=== PATIENT | male | born 1980 | race Caucasian/White ===

== ENCOUNTER 2024-07-28 14:43 | Inpatient (IN) | payer OTHER, SELFPAY ==
[2024-07-28] VITALS (10 sets, daily range): BP systolic 100–151; BP diastolic 44–84; BMI 30.4
--- NOTE | 2024-07-28 10:48 | ED.GENMED ---
History of Present Illness
<Carola Mittal PA-C - Last Filed: 07/28/24 18:59>
General
Chief Complaint: Musculo-Skeletal Complaint
Source: patient
Exam Limitations: none
Time Seen by Provider: 07/28/24 10:27
Nursing documentation reviewed up to this point in time: agreed with
History of Present Illness
History of Present Illness:
44 y/o M with no sig pmh
was at work and a granite countertop fell on top of him, mostly hitting his R lower leg and fell backwards, hit his head
he has pain/swelling/deformity of R lower leg tib fib region
no LOC
no headache, cp, sob
EMS noticed he was vitor in 40s, ran ekg and showed sinus rhythm with J point elevation
pt had no cp, sob
abrasion righ tthigh and bruise to L foot
denies headache/nekc pain
Past History
<Carola Mittal PA-C - Last Filed: 07/28/24 18:59>
Past History
ED Past Medical History: None
ED Past Surgical History: None
Social History
Tobacco: Non-smoker
Alcohol: None
Drug: None
Personal: Single
Living: with family
Employment: Employed
Review of Systems
<TAMMIE Vivas Last Filed: 07/28/24 18:59>
Review of Systems
Allergies reviewed?: Yes
All Other Systems: Not applicable
Phy Exam
<TAMMIE Vivas Last Filed: 07/28/24 18:59>
Physical Exam
Physical Exam:
GENERAL: Alert , in no apparent distress
HEAD: NCAT
NECK: no midline tenderness, active ROM intact, no paraspinal muscle tenderness;
EYE: pupils equal and reactive, EOMs intact.
ENT: o/p clr, mmm. no hemotympanum
CARDIAC: Regular rate and rhythm, no edema
LUNGS: Clear breath sounds bilaterally, no acute respiratory distress, no wheezes/rales/rhonchi
ABDOMEN: Soft, without focal tenderness, no r/g, no cvat no bruising
NEUROLOGICAL: Alert and oriented, no focal neuro deficits, CN intact, 5/5 strength, sensation intact
SKIN: Warm and dry, abrasion R anterior knee
bruising to L dorsal foot
MUSCULOSKELETAL: obvious deformity closed fx of the midshaft tibial region RLE
no bony ankle tenderness
right foot slightly swollen R lateral foot
normal calf, compartment soft
normal sensation distally
can wiggle toes
PSYCH: Normal and appropriate interaction.
Course
<Carola Mittal PA-C - Last Filed: 07/28/24 18:59>
Orders/Labs/Results
Orders:
Orders
07/28/24 Lunch
Regular
At Your Request: Limited, Garbage Collector Supervisor Required
07/28/24 10:44
Electrocardiogram (*1) Urgent
Reason for Study: Other
Other Reason for Exam: bradycardia
EKG- Treatment ONCE
CR Foot - Left Min 3 Views Urgent
Comment:
Reason For Exam: left foot bruising, granite fell
CR Foot - Right Min 3 Views Urgent
Comment:
Reason For Exam: right foot injury
Femur, Right 2 View [CR Femur - Right Min 2 Vw] Urgent
Comment:
Reason For Exam: right leg
07/28/24 10:46
CT Cervical Spine W/o Iv Contr Urgent
Comment:
Reason For Exam: trauma
CT Head W/o Iv Contrast Urgent
Comment:
Reason For Exam: trauma
HYDROmorphone [Dilaudid] 1 mg IV NOW STA
Tib/Fib, Right 2 View [CR Leg Tibia/fibula Right 2 Vw] Urgent
Comment:
Reason For Exam: right leg injury
07/28/24 10:59
Complete Blood Count/With Diff Urgent
Comprehensive Metabolic Panel Urgent
PTT Urgent
Prothrombin Time Urgent
07/28/24 13:47
Admit/Transfer Patient As Directed
Co-Sign Provider:
Level of Care: Inpatient admission
Assign to:: Medical/Surgical
Physician / Group: Gloria
Diagnosis: RLE fracture
Reason for Hospitalization: Above
Expected length of stay greater than two midnights?: Yes
ELOS- Estimated Length of Stay in days: 2
I certify the patient meets the requirements for IP care: Yes
PRN Pain Medication Management As Directed
May give lesser potent ordered pain med per pt: Yes
preference::
Protocol:: Medication orders for pain may be administered in a
manner that supports deferring to patient preference
when the pt is:
- Requesting an ordered lesser potent pain medication.
Least to most potent pain medications are defined
as: acetaminophen < NSAID < tramadol < opioids
(morphine, oxycodone, hydromorphone).
- Requesting a lesser dose of the same medication IF
ORDERED.
- Requesting a less intrusive route of administration
if both routes are prescribed by the provider (PO <
IV).
07/28/24 13:48
Code Status As Directed
Resuscitation Status: Full Code
07/28/24 16:07
Acetaminophen [Tylenol] 1,000 mg PO Q6HPRN PRN
Ketorolac [Toradol] 30 mg IV Q6HPRN PRN
Morphine Sulfate 4 mg IV Q4HPRN PRN
07/28/24 16:07
ECG [Electrocardiogram (*1)] Routine
Reason for Study: PreOp
ORTHOPEDIC CONSULT Routine
Consulting Provider: Jonathan Hennessy
Was physician already notified: Yes
VTE Contraindication Routine
VTE Mechanical Device Contraindication: Lower Limb Injury
Pharmocologic Contraindication: Low Risk- LOS < 2 days
Risk assessment completed and pt is low risk: Yes
Neurological Checks As Directed
Frequency: q2h
Additional Instructions:: RLE extremity monitoring for compartment syndrome
07/29/24 Breakfast
NPO
Allow oral meds: Yes
Allow clear liquids: No
Abnormal Lab Results
07/28/24
10:59
WBC 11.5 H 10^3/uL
(4.8-10.8)
MCH 31.2 H pg
(27.0-31.0)
Absolute Neuts (auto) 8.6 H 10^3/uL
(1.4-6.5)
Absolute Monos (auto) 0.8 H 10^3/uL
(0.1-0.6)
Lymphocytes % 17.3 L %
(20.5-51.1)
Glucose 122 H mg/dl
(70-99)
07/28/24 10:59
07/28/24 10:59
Vital Signs
Initial and Last Documented VS:
Initial Vital Signs
Pulse Resp BP Pulse Ox
49 16 100/44 97
07/28/24 10:27 07/28/24 10:27 07/28/24 10:27 07/28/24 10:27
Last Documented Vital Signs
Temp Pulse Resp BP Pulse Ox
98.9 F 68 18 125/65 100
07/28/24 16:33 07/28/24 16:33 07/28/24 16:33 07/28/24 16:33 07/28/24 16:33
<Blake Reyes MD - Last Filed: 07/28/24 14:04>
Orders/Labs/Results
Orders:
Orders
07/28/24 Lunch
Regular
At Your Request: Limited, Garbage Collector Supervisor Required
07/28/24 10:44
Electrocardiogram (*1) Urgent
Reason for Study: Other
Other Reason for Exam: bradycardia
EKG- Treatment ONCE
CR Foot - Left Min 3 Views Urgent
Comment:
Reason For Exam: left foot bruising, granite fell
CR Foot - Right Min 3 Views Urgent
Comment:
Reason For Exam: right foot injury
Femur, Right 2 View [CR Femur - Right Min 2 Vw] Urgent
Comment:
Reason For Exam: right leg
07/28/24 10:46
CT Cervical Spine W/o Iv Contr Urgent
Comment:
Reason For Exam: trauma
CT Head W/o Iv Contrast Urgent
Comment:
Reason For Exam: trauma
HYDROmorphone [Dilaudid] 1 mg IV NOW STA
Tib/Fib, Right 2 View [CR Leg Tibia/fibula Right 2 Vw] Urgent
Comment:
Reason For Exam: right leg injury
07/28/24 10:59
Complete Blood Count/With Diff Urgent
Comprehensive Metabolic Panel Urgent
PTT Urgent
Prothrombin Time Urgent
07/28/24 13:47
Admit/Transfer Patient As Directed
Co-Sign Provider:
Level of Care: Inpatient admission
Assign to:: Medical/Surgical
Physician / Group: Gloria
Diagnosis: RLE fracture
Reason for Hospitalization: Above
Expected length of stay greater than two midnights?: Yes
ELOS- Estimated Length of Stay in days: 2
I certify the patient meets the requirements for IP care: Yes
PRN Pain Medication Management As Directed
May give lesser potent ordered pain med per pt: Yes
preference::
Protocol:: Medication orders for pain may be administered in a
manner that supports deferring to patient preference
when the pt is:
- Requesting an ordered lesser potent pain medication.
Least to most potent pain medications are defined
as: acetaminophen < NSAID < tramadol < opioids
(morphine, oxycodone, hydromorphone).
- Requesting a lesser dose of the same medication IF
ORDERED.
- Requesting a less intrusive route of administration
if both routes are prescribed by the provider (PO <
IV).
07/28/24 13:48
Code Status As Directed
Resuscitation Status: Full Code
07/28/24 16:07
Acetaminophen [Tylenol] 1,000 mg PO Q6HPRN PRN
Ketorolac [Toradol] 30 mg IV Q6HPRN PRN
Morphine Sulfate 4 mg IV Q4HPRN PRN
07/28/24 16:07
ECG [Electrocardiogram (*1)] Routine
Reason for Study: PreOp
ORTHOPEDIC CONSULT Routine
Consulting Provider: Jonathan Hennessy
Was physician already notified: Yes
VTE Contraindication Routine
VTE Mechanical Device Contraindication: Lower Limb Injury
Pharmocologic Contraindication: Low Risk- LOS < 2 days
Risk assessment completed and pt is low risk: Yes
Neurological Checks As Directed
Frequency: q2h
Additional Instructions:: RLE extremity monitoring for compartment syndrome
07/29/24 Breakfast
NPO
Allow oral meds: Yes
Allow clear liquids: No
Abnormal Lab Results
07/28/24
10:59
WBC 11.5 H 10^3/uL
(4.8-10.8)
MCH 31.2 H pg
(27.0-31.0)
Absolute Neuts (auto) 8.6 H 10^3/uL
(1.4-6.5)
Absolute Monos (auto) 0.8 H 10^3/uL
(0.1-0.6)
Lymphocytes % 17.3 L %
(20.5-51.1)
Glucose 122 H mg/dl
(70-99)
07/28/24 10:59
07/28/24 10:59
Vital Signs
Initial and Last Documented VS:
Initial Vital Signs
Pulse Resp BP Pulse Ox
49 16 100/44 97
07/28/24 10:27 07/28/24 10:27 07/28/24 10:27 07/28/24 10:27
Last Documented Vital Signs
Temp Pulse Resp BP Pulse Ox
98.9 F 68 18 125/65 100
07/28/24 16:33 07/28/24 16:33 07/28/24 16:33 07/28/24 16:33 07/28/24 16:33
<Carola Mittal PA-C - Last Filed: 07/28/24 18:59>
MDM/Problems Addressed
Differential Diagnosis Includes:
fracture deformity, traua crush injury
MDM/Problems Addressed:
Spanish speaking
workman's comp injury, granite slab fell off counter onto RLE
fracture deformity of mid shaft tib/fib right leg;
normal pulse
compartment soft
ortho dr. hennessy was consulted
recommends NPO, admit, compartment checks and will need surgery
no other injuries, head/neck ct neg
femur normal
no abdominal trauma
<Carola Mittal PA-C - Last Filed: 07/28/24 18:59>
*Critical Care Note
Total Time (30-74mins, 75-104mins- exclusive of procedures): Not Applicable
ED Attending Note
<Carola Mittal PA-C - Last Filed: 07/28/24 18:59>
-
Portions of this chart may have been created with voice recognition software.� Occasional wrong word or��sound alike� substitutions may have occurred due to the inherent limitations of voice recognition software.
<Blake Reyes MD - Last Filed: 07/28/24 14:04>
ED Attending Note
Patient seen and examined by attending physician: Yes
ED Attending Note:
I have seen and evaluated the patient with a [id number] encounter. I have spoken to the advance practicer provider and involved in the medical history, the physical exam, medical decision making.
Evaluation and management service: agree unless noted differently below.
Results interpretation: agree unless noted differently below.
Focused HPI: 44-year-old male with no reported chronic medical issues presents for evaluation of a right leg injury. Patient was working with a granite slab fell onto his right leg, knocked patient over. He did hit his head but did not lose
consciousness. Sustained a deformity of the right lower leg. He denies any other injuries�denies headache, neck pain, back pain, chest pain, abdominal pain. Denies any pain to the upper extremities.
Physical exam: Awake alert oriented x 3 with a GCS of 15. Head atraumatic. No tenderness of the cervical spine, no tenderness of the thoracic or lumbar spine. Minor abrasion to the left scapula. Upper extremities atraumatic. Minor abrasion
right lateral thigh. Obvious deformity the right lower leg consistent with hip/fib fracture. No lacerations or wounds on the lower leg. Compartments soft in the right lower leg. Good strong palpable DP and PT pulse right lower extremity.
Medical Decision Makin-year-old male presents with significant right lower leg injury after granite slab fell onto his leg. Vitals and exam as above. Sent for a CT of the head and cervical spine which were negative. X-rays of the lower leg
showed tib/fib fracture. Discussed with orthopedics and will plan to admit for compartment checks and surgical repair.
Discharge Plan
Departure
Patient Disposition: Admit
Date of Disposition: 07/28/24
Time of Disposition: 12:25
Admit to: Med/Surg
Presentation/result/management discussed w/ accepting MD/DO: Hospitalist
Condition: Fair
Covid-19: Not Applicable
Discharge Problem:
Fracture tibia/fibula
Interventions
Interventions:
*Risk Screen - Suicide Last Done: 07/28/24 15:40
*General Assessment Last Done: 07/28/24 10:27
*Neglect/Abuse Screening Last Done: 07/28/24 10:27
ED- Fall Risk Assessment Last Done: 07/28/24 10:27
*ED COVID-19 Vaccine History Last Done: 07/28/24 11:08
*Nursing Disposition Last Done: 07/28/24 15:40
ED-Musculoskeletal Assessment Last Done: 07/28/24 10:27
Discharge Date and Time
Discharge Date/Time: 07/28/24 15:41
[2024-07-28] MEDS: DILAUDID 1 MG IV (10:56)
[2024-07-28 11:10] LABS: % Basophils 0.7 % (0-2); % Eosinophils 0.3 % (0-6); % Immature Granulocytes 0.3 % (0-0.5); % Lymphocytes 17.3 % (20.5-51.1); % Monocytes 7.2 % (1.7-9.3); % Neutrophils 74.2 % (42.2-75.2); Absolute Basophils 0.1 10^3/uL (0-0.2); Absolute Monocytes 0.8 10^3/uL (0.1-0.6); Absolute Neutrophils 8.6 10^3/uL (1.4-6.5); Hematocrit 44.3 % (39.0-52.0); Hemoglobin 15.7 g/dL (13.0-18.0); Mean Corp Hgb Conc. 35.4 g/dL (33.0-37.0); Mean Corpuscular Hgb 31.2 pg (27.0-31.0); Mean Corpuscular Volume 87.9 fL (80.0-94.0); Mean Platelet Volume 8.9 fL (7.4-10.4); Nucleated Red Blood Cells % 0 % (-); Platelet Count 249 10^3/uL (130-400); Red Blood Cell Count 5.04 10^6/uL (4.70-6.10); Red Cell Dist. Width 12.3 % (11.5-14.5); White Blood Cell Count 11.5 10^3/uL (4.8-10.8)
[2024-07-28 11:21] LABS: ALT (SGPT) 40 U/L (0-50); AST (SGOT) 33 U/L (17-59); Albumin 4.4 g/dl (3.5-5.0); Alkaline Phosphatase 78 U/L (38-126); Blood Urea Nitrogen 15 mg/dl (9-20); Calcium 8.9 mg/dl (8.4-10.2); Carbon Dioxide 24 mmol/L (22-30); Chloride 105 mmol/L (98-107); Glucose 122 mg/dl (70-99); PT 13.6 Sec (11.4-14.6); Sodium 142 mmol/L (135-145); Total Bilirubin 0.6 mg/dl (0.2-1.3); Total Protein 7.2 g/dl (6.3-8.2); eGFR > 60.00
[2024-07-28 11:22] LABS: APTT 26.8 Sec (23.4-35.0)
--- NOTE | 2024-07-28 13:54 | HPS.HSE ---
Family Physician
-
Family Physician: * NONE
Chief Complaint
-
Right lower extremity fracture
History of Present Illness
Patient is a 44 old male with no known medical problems who presents to the emergency room after getting slab fell off the counter injuring right lower extremity. With additional evaluation patient was found midshaft right tibia and fibula
fracture. Patient has soft compartments on exam. Additional trauma survey was negative for head trauma and abdominal trauma.
Patient is seen by orthopedics and being admitted for repair.
Medical History
Past Medical History
Past Medical History: Reports None
Past Surgical History: Reports None
Social History
Tobacco: Non-smoker
Alcohol: None
Living: With Family
Family History
Family History: Not pertinent
Allergies / Home Medications
Allergies reflects when Allergies were last updated in [facility].
Home Medications with original date entered in [facility]
Allergy/Medication List:
Allergies
Allergy/AdvReac Type Severity Reaction Status Date / Time
No Known Allergies Allergy Verified 07/28/24 10:36
Home Medications
No Meds [No Current Medications] 07/28/24
Review of Systems
-
A 12 point ROS was completed and negative except as noted: Yes
Physical Exam
Vital Signs
Vital Signs
Pulse Resp BP Pulse Ox
73 16 142/68 96
07/28/24 12:30 07/28/24 12:30 07/28/24 12:15 07/28/24 12:30
Physical Exam
General: Well Developed, Well Nourished and No Apparent Distress
HEENT: NormoCephalic, Moist mucous membranes and Atraumatic
Respiratory: Clear
Cardiac: S1/S2 and Regular Rhythm; No Murmur or Rub
GI: Soft, Non Tender, Non Distended and Normal Bowel Sounds; No Organomegaly
Rectal: Deferred by Provider
Musculoskeletal: No Clubbing, No Cyanosis, No Edema and Other (Right lower extremity immobilized)
Skin: No Rash
Neuro: Awake, Alert, Oriented and Nonfocal/grossly intact
Laboratory Results
-
07/28/24 10:59
07/28/24 10:59
Laboratory Results
PT 13.6 Sec (11.4-14.6) 07/28/24 10:59
INR 1.00 07/28/24 10:59
APTT 26.8 Sec (23.4-35.0) 07/28/24 10:59
Total Bilirubin 0.6 mg/dl (0.2-1.3) 07/28/24 10:59
AST 33 U/L (17-59) 07/28/24 10:59
ALT 40 U/L (0-50) 07/28/24 10:59
Alkaline Phosphatase 78 U/L (38-126) 07/28/24 10:59
Impression/Plan
-
IMPRESSION:
Right lower extremity tibia and fibula midshaft fracture, traumatic.
PLAN:
Discussed with orthopedics
With admit to medical service
Continue monitor for compartment syndrome with serial neuro/pulse checks.
Analgesia with oral Tylenol, IV Toradol, IV morphine.
N.p.o. postmidnight 07/29 for orthopedic repair.
Preoperative clearance.
Patient with no known medical problems.
Will check baseline ECG.
[2024-07-28] MEDS: MORPHINE SULFATE 4 MG IV ×2 (16:53→22:10)
--- NOTE | 2024-07-28 17:26 | PTCARENOTE ---
Admitted to room 2110. AOx3, VSS. Adalberto wrap and splint noted to RLE. Patient reports 10/10 pain, given PRN morphine, see MAR. Pt's primary language is Macedonian. Language line used to discuss plan of care and obtain admission questions. Informed how
to use call clark and encouraged to make needs known.
[2024-07-28] MEDS: TYLENOL 1000 MG PO (23:17)
[2024-07-29] VITALS (7 sets, daily range): BP systolic 115–157; BP diastolic 62–93
[2024-07-29] MEDS: MORPHINE SULFATE 4 MG IV (07:11)
--- NOTE | 2024-07-29 07:40 | CON.ORTHO ---
Consultation
-
Date/Time Consultation Requested: 07/28/2024; time unknown
Date/Time Consultation Performed: 07/29/2024; 0700
Requesting Provider: unknown
Performing Provider: Viola Raphael PA-C for Dr. Jonathan Liriano
Reason for Consultation: Right tibia/fibula fractures
Consultation - Orthopedics
History
Mr. Demarcus Dai is a 44 year old male with no known PMH seen today for his right lower extremity. His son is at the bedside and helping translate. He works in [employer], and unfortunately a slab fell off a counter and landed on his
right leg. He reports immediate onset of pain in the leg, and was unable to bear any weight. He presented to ED where x-rays reveals fractures of his tibia and fibula. He endorses aching pain in his right leg at present, and states his symptoms
are exacerbated with any movement of the leg. He denies pain elsewhere. He denies parasthesias.
He lives independently, and typically ambulates without assistance at baseline. He denies PMH of DVT, CVA, [place] or known DM. He does not take any daily blood thinners.
Allergies / Home Medications
Allergy/AdvReac Type Severity Reaction Status Date / Time
No Known Allergies Allergy Verified 07/28/24 10:36
�Medication �Instructions �Recorded
No Meds [No Current Medications] 07/28/24
Vital Signs / Lab Results
Temp Pulse Resp BP Pulse Ox
99.0 F 86 16 123/67 99
07/28/24 23:00 07/28/24 23:00 07/28/24 23:00 07/28/24 23:00 07/28/24 23:00
07/28/24 10:59
07/28/24 10:59
XR Right Tib/Fib 07/28/2024 IMPRESSION:
Comminuted slightly displaced diaphyseal fractures of the right tibia and fibula just below the midshaft as described. No other acute fractures identified.
Directed exam of the right lower extremity reveals stirrup splint in place. This was removed the reveal skin. There is a varus deformity about the right lower leg. Expected edema about the right lower extremity and foot. Compartments are all soft
and compressible, though patient endorses quite a bit of tenderness to palpation about the tibial and fibular shaft fracture sites. Patient able to wiggle toes, plantar and dorsiflex ankle. Sensation intact to light touch. Capillary refill <2
seconds.
Assessment / Plan
Right tibia and fibula shaft fractures
--Unfortunately, Love sustained fractures of the shaft of his right tibia and fibula. This is an unstable fracture and I recommend proceeding with a right tibial intramedullary nail for surgical fixation. The risks, benefits, alternatives,
recovery process and potential complications were discussed in detail. He verbalized understanding, and would like to proceed with surgical intervention. Will plan to proceed with right tibia IM nail today under the direction of Dr. An.
Surgical and blood consents are signed and in the patient's chart.
--Patient reports splint from ED was digging into his ankle, arch and heel. To prevent pressure wound, new posterior leg fiberglass splint was placed at the bedside this morning. CAESAR wraps placed loosely to hold splint in place.
--NPO until surgery.
--NWB to RLE until surgery.
--Elevate and ice leg as much as possible to minimize edema prior to surgery.
--Pain control per primary.
--Antibiotics ordered to OR.
--Please reach out with any additional orthopedic questions or concerns.
[2024-07-29] MEDS: TYLENOL 1000 MG PO (08:24)
--- NOTE | 2024-07-29 11:14 | CM ---
CM met with pt and son/Ronak (18 y/o) bedside
Pt is Portugese speaking and son provided interpretation
[place], full flight to second floor
Pt's niece/Nora (23 y/o) also resides with them and she works FT out of the home
Pt is independent and works FT in [employer]
Denies use of DMEs
PCP- none
Rx- [facility]- [facility] Cortez
Pt is uninsured
Per [employer], pt is over income for MA
CM provide Rose info in Portugese to pt
CM instructed pt to obtain workers comp info and file claim
Advised that info will need to be provided to CM
Plan for OR today for ORIF of R leg
CM will follow for post op needs
Son/Ronak added to contacts [phone]
Discharge Disposition- TBD
[2024-07-29] MEDS: TORADOL 30 MG IV ×2 (11:47→17:47)
--- NOTE | 2024-07-29 14:15 | W.PN.HOSP.TC ---
Today's Communication/Plan
-
Pending ORIF
Continue close monitoring for compartment syndrome
Continue current analgesic regimen.
Reassess postoperatively
Assessment / Plan
Assessment / Plan
IMPRESSION:
Right lower extremity tibia and fibula midshaft fracture, traumatic.
PLAN:
Discussed with orthopedics
With admit to medical service
Continue monitor for compartment syndrome with serial neuro/pulse checks.
Analgesia with oral Tylenol, IV Toradol, IV morphine.
N.p.o. postmidnight 07/29 for orthopedic repair.
Preoperative clearance.
Patient with no known medical problems.
ECG NSR with no ischemia. Normal.
Anticipated Discharge: 24 - 48 hours
Subjective/Interval History
-
Date of Service: July 29, 2024
Objective Data
-
Vital Signs:
Vital Signs
Temp Pulse Resp BP Pulse Ox
98.2 F 63 16 138/76 97
07/29/24 08:02 07/29/24 08:02 07/29/24 08:02 07/29/24 08:02 07/29/24 08:02
I&O
07/28/24 07/29/24 07/30/24
06:59 06:59 06:59
Intake Total 580 / 580
Output Total 600 / 600
Balance -20 / -20
Physical Exam
-
General: Well Developed and No Apparent Distress
HEENT: Normocephalic, Atraumatic and Moist Mucous Membranes
Respiratory: Clear to Auscultation
Cardiac: Regular Rhythm and S1/S2; Negative Murmur, Rub or Gallop
GI: Soft, Nontender, Nondistended and Normal Bowel Sounds; Negative Organomegaly
Rectal: Deferred by Provider
Musculoskeletal: No Clubbing, No Cyanosis and No Edema
Skin: Negative Rash
Neuro: Nonfocal/Grossly Intact
--- NOTE | 2024-07-29 21:43 | W.IMMPOSTOP ---
Surgical Immed Post Op Note
-
Primary Surgeon: Antolin An MD
Assisting Surgeon: Lorena Hoang PA-C
Pre-op Diagnosis: right tibial shaft fracture
Post-op Diagnosis: right tibial shaft fracture
Procedure Performed: right tibia intramedullary fixation
Implants: Sasha T2 Alpha [id number]
Anesthesia Type: general
Specimen / Cultures: none
Estimated Blood Loss: 50mL
Complications: none apparent
Operative Findings: lateral butterfly fragment
Operative dictation # [id number]
--- NOTE | 2024-07-29 21:59 | W.PN.UPDATE ---
Update Note
Progress Note Update
Patient examined immediately postop in the PACU. States he has no pain, his sensation is intact, and he has no other complaints
Sensation intact, 5/5 EHL/FHL, dorsiflexion/plantarflexion
Advance diet as tolerated this evening
DVT PPX with ASA 325 to start in AM
Pain control PRN
[2024-07-29] MEDS: ASPIRIN 325 MG PO (22:28)
[2024-07-29] MEDS: ROXICODONE 10 MG PO (22:32)
--- NOTE | 2024-07-29 22:54 | PTCARENOTE ---
Pt. returned to 2S from PACU around 2224 and surgical sites assessed with off-going PACU nurse. Pt. reports 7/10 RLE pain, given pain meds - see NOV. Pt. and son updated on plan of care postop.
[2024-07-30] VITALS (7 sets, daily range): BP systolic 91–130; BP diastolic 33–69; PULSE 68; O2SAT 98
[2024-07-30] MEDS: FLUSH (NSS) 2 FLUSH IV (02:05)
[2024-07-30] MEDS: ANCEF 5 IV ×2 (02:06→09:54)
[2024-07-30 05:51] LABS: % Basophils 0.1 % (0-2); % Immature Granulocytes 0.3 % (0-0.5); % Lymphocytes 7.7 % (20.5-51.1); % Monocytes 7.6 % (1.7-9.3); % Neutrophils 84.3 % (42.2-75.2); Absolute Lymphocytes 0.8 10^3/uL (1.2-3.4); Absolute Monocytes 0.8 10^3/uL (0.1-0.6); Absolute Neutrophils 8.5 10^3/uL (1.4-6.5); Hematocrit 42.7 % (39.0-52.0); Hemoglobin 14.8 g/dL (13.0-18.0); Mean Corp Hgb Conc. 34.7 g/dL (33.0-37.0); Mean Corpuscular Hgb 31.4 pg (27.0-31.0); Mean Corpuscular Volume 90.5 fL (80.0-94.0); Mean Platelet Volume 9.6 fL (7.4-10.4); Nucleated Red Blood Cells % 0 % (-); Platelet Count 235 10^3/uL (130-400); Red Blood Cell Count 4.72 10^6/uL (4.70-6.10); Red Cell Dist. Width 12.4 % (11.5-14.5)
[2024-07-30 06:13] LABS: Blood Urea Nitrogen 23 mg/dl (9-20); Carbon Dioxide 28 mmol/L (22-30); Chloride 101 mmol/L (98-107); Estimated Creatinine Clearance 89 ml/min; Glucose 103 mg/dl (70-99); Potassium 4.7 mmol/L (3.5-5.1); Sodium 139 mmol/L (135-145); eGFR > 60.00
--- NOTE | 2024-07-30 07:34 | W.PN.ORTHO ---
Today's Communication / Plan
-
PT/OT
Weightbearing as tolerated with crutches
Aspirin for DVT prophylactics
Ice with elevation to control swelling and pain
Follow-up in office 10 to 14 days postop
Assessment
.
Distal Motor Intact: Yes
Dressing:
Clean, dry and intact.
Plan
.
Surgery / Date: R tibial nailing 07/29 Juve
DVT Prophylaxis: Aspirin
Activity:
Out of bed.
PT/OT
Discharge Plan: Home
Subjective
.
.:
Patient resting comfortably.
Vital Signs and Labs
.
Vital Signs and Labs:
Lab Results
07/30/24 04:40
07/30/24 04:40
Temp Pulse Resp BP Pulse Ox
98.0 F 72 16 106/63 94
07/30/24 03:39 07/30/24 03:39 07/30/24 03:39 07/30/24 03:39 07/30/24 03:39
PT 13.6 Sec (11.4-14.6) 07/28/24 10:59
INR 1.00 07/28/24 10:59
Physical Exam
-
Right lower extremity Adalberto wrap in place. It is clean, dry and intact.
[2024-07-30] MEDS: ASPIRIN 325 MG PO (09:55)
[2024-07-30] MEDS: SENOKOT 17.2 MG PO ×2 (09:55→19:50)
[2024-07-30] MEDS: COLACE 100 MG PO ×2 (09:55→19:50)
[2024-07-30] MEDS: ROXICODONE 10 MG PO ×3 (10:04→19:53)
--- NOTE | 2024-07-30 13:15 | CM ---
Chart reviewed
Met with pt and his son at bedside - son acted as seismic interpreter
Discussed PT recs - HH
Pt reports he has spoken to work regarding making an insurance claim but has not heard back and does not have a claim number or information about claim. Pt reports he does not have a PCP. Pt made aware that without PCP and insurance/workman's comp
info - unable to provide HH
Pt was given info for [facility] in [facility] including [facility] located near his home. Encouraged to call to schedule appt for PCP and additional needs.
Dr Castro made aware
Plan - anticipate home no needs
--- NOTE | 2024-07-30 13:58 | W.DS.TRANS ---
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
-
Discharge Instructions:
Discharge Diagnosis/Procedures Right lower extremity tibia and fibula midshaft
fracture, traumatic.
Instructions:
Stand-Alone Forms:
Changes to Home Medications: Yes
Discharge Medications:
DC Medications w/original date entered in [facility]
acetaminophen 325 mg tablet 650 mg (2 x 325 mg) PO Q4HPRN PRN headache, temp >101F #60 tabs 07/30/24
aspirin 325 mg tablet 325 mg PO DAILY #28 tabs 07/30/24
oxycodone 5 mg tablet 5 mg PO Q6H PRN Pain #20 tabs 07/30/24
Home Medication Changes
All of above
Pending Results: No
--- NOTE | 2024-07-30 16:09 | W.PN.HOSP.TC ---
Today's Communication/Plan
-
Postoperative care per
Analgesia
Physical therapy evaluation
Assessment / Plan
Assessment / Plan
IMPRESSION:
Right lower extremity tibia and fibula midshaft fracture, traumatic.
PLAN:
Discussed with orthopedics
With admit to medical service
No evidence of compartment syndrome on monitoring
Status post ORIF on 07/29
Physical therapy assessment
Continue analgesia with Tylenol/oxycodone
Preoperative clearance.
Patient with no known medical problems.
ECG NSR with no ischemia. Normal.
Anticipated Discharge: 24 - 48 hours
Subjective/Interval History
-
Date of Service: July 30, 2024
Objective Data
-
Labs:
Laboratory Results
07/30/24
04:40
WBC 10.0
Hgb 14.8
Hct 42.7
Plt Count 235
Sodium 139
Potassium 4.7
Chloride 101
Carbon Dioxide 28
BUN 23 H
Creatinine 1.1
Glucose 103 H
Calcium 9.0
Vital Signs:
Vital Signs
Temp Pulse Resp BP Pulse Ox
98.5 F 71 15 105/68 97
07/30/24 11:07 07/30/24 11:07 07/30/24 11:07 07/30/24 11:07 07/30/24 11:07
I&O
07/29/24 07/30/24 07/31/24
06:59 06:59 06:59
Intake Total 580 / 580 540 / 540
Output Total 600 / 600 550 / 550
Balance -20 / -20 -10 / -10
Physical Exam
-
General: Well Developed and No Apparent Distress
HEENT: Normocephalic, Atraumatic and Moist Mucous Membranes
Respiratory: Clear to Auscultation
Cardiac: Regular Rhythm and S1/S2; Negative Murmur, Rub or Gallop
GI: Soft, Nontender, Nondistended and Normal Bowel Sounds; Negative Organomegaly
Rectal: Deferred by Provider
Musculoskeletal: No Clubbing, No Cyanosis and No Edema
Skin: Negative Rash
Neuro: Nonfocal/Grossly Intact
[2024-07-30] MEDS: TYLENOL 650 MG PO (19:53)
[2024-07-31 07:25] VITALS: BP 129/74
--- NOTE | 2024-07-31 08:17 | W.PN.ORTHO ---
Today's Communication / Plan
-
PT/OT
Weightbearing as tolerated with crutches
Aspirin for DVT prophylactics
Ice with elevation to control swelling and pain
Follow-up in office 10 to 14 days postop
Orthopedic surgery will follow peripherally; please reengage with further questions or concerns. Discharge information updated
Assessment
.
Distal Motor Intact: Yes
Dressing:
Clean, dry and intact.
Plan
.
Surgery / Date: R tibial nailing 07/29 Juve
DVT Prophylaxis: Aspirin
Activity:
Out of bed.
PT/OT
Subjective
.
.:
Patient resting comfortably.
Vital Signs and Labs
.
Vital Signs and Labs:
Lab Results
07/30/24 04:40
07/30/24 04:40
Temp Pulse Resp BP Pulse Ox
98.4 F 58 18 130/64 98
07/30/24 23:07 07/30/24 23:07 07/30/24 23:07 07/30/24 23:07 07/30/24 23:07
PT 13.6 Sec (11.4-14.6) 07/28/24 10:59
INR 1.00 07/28/24 10:59
[2024-07-31] MEDS: TORADOL 30 MG IV (08:35)
[2024-07-31] MEDS: COLACE 100 MG PO (08:40)
[2024-07-31] MEDS: SENOKOT 17.2 MG PO (08:41)
[2024-07-31] MEDS: ASPIRIN 325 MG PO (08:41)
[2024-07-31 11:56] VITALS: BP 148/71; PULSE 72; O2SAT 96
[2024-07-31 12:06] VITALS: BP 148/71; PULSE 72; O2SAT 96
[2024-07-31] MEDS: ROXICODONE 10 MG PO (14:06)
[2024-07-31 14:14] VITALS: BP 132/69
--- NOTE | 2024-07-31 15:52 | CM ---
Chart reviewed and spoke with pt and his son
Pt for discharge today
Encouraged to call an schedule apt with PCP at [facility] [address] in [facility]
Unable to provide HH as pt does not have PCP - pt aware
Encouraged to contact employer for workman's comp information
Has ride at discharge
Plan - home no needs
== END 2024-07-31 15:37 | disposition home or self-care (01) | DRG 494 ==
LOC: 2 SOUTH 14:43
PROVIDERS: Physician Assistant; ADMITTING PHYSICIAN Internal Medicine; EMERGENCY PHYSICIAN Emergency Medicine; OTHER PHYSICIAN Student in an Organized Health Care Education/Training Program
PROC: 0QSG06Z Reposition Right Tibia with Intramedullary Internal Fixation Device, Open Approach (ICD-10-PCS; 2024-07-29)
DX: S82.251A Displaced comminuted fracture of shaft of right tibia, initial encounter for closed fracture (principal); S82.451A Displaced comminuted fracture of shaft of right fibula, initial encounter for closed fracture; S87.81XA Crushing injury of right lower leg, initial encounter; W20.8XXA Other cause of strike by thrown, projected or falling object, initial encounter; Y93.H3 Activity, building and construction; Y92.69 Other specified industrial and construction area as the place of occurrence of the external cause; Y99.0 Civilian activity done for income or pay
CPT/HCPCS: 70450; 72125; 73552; 73590; 73630; 76000; 80048; 80053; 85025; 85610; 85730; 93005; 96374; 97116; 97163; 97167; 97530; 97535; 99285; C1713; C1769